=== PATIENT | male | born 1970 | race Asian ===

== ENCOUNTER 2017-05-15 00:35 | Emergency (ER) | payer OTHER ==
[~2017-05-15] VITALS: Ht 172.7 cm; Wt 126.6 kg
[2017-05-15 02:19] VITALS: BP 131/89
== END 2017-05-15 02:22 | disposition home or self-care (01) ==
LOC: EME 00:35
DX: S93.602A Unspecified sprain of left foot, initial encounter (principal); W18.30XA Fall on same level, unspecified, initial encounter; X50.1XXA Overexertion from prolonged static or awkward postures, initial encounter
CPT/HCPCS: 73610; 73630; 99281; 99283